=== PATIENT | male | born 1940 | race Caucasian/White ===

== ENCOUNTER 2020-05-08 05:30 | Inpatient (IN) | payer OTHER ==
[~2020-05-08 05:30] MED LIST: CRESTOR5 MG PO; TAMS0.4C PO; ZESTRIL10 M1 PO
== END 2020-05-13 12:38 | disposition home or self-care (01) | DRG 415 ==
LOC: CIR.AMB 05:30 → O/R 10:59 → SURH 10:59 → SURG 13:05 → SURH 15:31 → CIR.AMB 16:03 → SURH 05-13 12:38
PROVIDERS: ADMIT Specialist; ATTEND Specialist
PROC: 0FJ44ZZ Inspection of Gallbladder, Percutaneous Endoscopic Approach (ICD-10-PCS; 2020-05-08)
PROC: 0FT40ZZ Resection of Gallbladder, Open Approach (ICD-10-PCS; principal; 2020-05-08 08:30)
DX: K80.10 Calculus of gallbladder with chronic cholecystitis without obstruction (principal); K91.89 Other postprocedural complications and disorders of digestive system; K56.0 Paralytic ileus; K66.0 Peritoneal adhesions (postprocedural) (postinfection); Z53.31 Laparoscopic surgical procedure converted to open procedure; I12.9 Hypertensive chronic kidney disease with stage 1 through stage 4 chronic kidney disease, or unspecified chronic kidney disease; N18.9 Chronic kidney disease, unspecified; Y83.8 Other surgical procedures as the cause of abnormal reaction of the patient, or of later complication, without mention of misadventure at the time of the procedure

== ENCOUNTER → 2020-09-27 | Outpatient (CLI) | payer OTHER | END | disposition home or self-care (01) | LOC: PPH VACUNA | PROVIDERS: ATTEND Emergency Medicine Pediatric Emergency Medicine | DX: Z23 Encounter for immunization (principal) ==

== ENCOUNTER 2021-02-27 07:37 | Outpatient (CLI) | payer OTHER | END 2021-02-27 07:39 | disposition home or self-care (01) | LOC: NUCLEAR 07:37 | PROVIDERS: ATTEND Internal Medicine Cardiovascular Disease | DX: I25.10 Atherosclerotic heart disease of native coronary artery without angina pectoris (principal); R07.89 Other chest pain; R93.1 Abnormal findings on diagnostic imaging of heart and coronary circulation; Z82.49 Family history of ischemic heart disease and other diseases of the circulatory system | CPT/HCPCS: 78452; 93017; A9500; J0153 ==

== ENCOUNTER 2021-06-02 08:00 | Outpatient (CLI) | payer OTHER | END 2021-06-02 08:30 | disposition home or self-care (01) | LOC: PPH VACUNA 08:00 | PROVIDERS: ATTEND Emergency Medicine Pediatric Emergency Medicine | DX: Z23 Encounter for immunization (principal) ==

== ENCOUNTER 2021-12-28 09:00 | Outpatient (CLI) | payer OTHER | END 2021-12-28 09:15 | disposition home or self-care (01) | LOC: PPH VACUNA 09:00 | PROVIDERS: ATTEND Emergency Medicine Pediatric Emergency Medicine | DX: Z23 Encounter for immunization (principal) ==

== ENCOUNTER 2022-03-31 14:37 | Outpatient (CLI) | payer OTHER | END 2022-03-31 14:38 | disposition home or self-care (01) | LOC: NUCLEAR 14:37 | PROVIDERS: ATTEND Orthopaedic Surgery | DX: M81.0 Age-related osteoporosis without current pathological fracture (principal); Z88.0 Allergy status to penicillin ==

== ENCOUNTER 2022-04-01 13:46 | Outpatient (CLI) | payer OTHER | END 2022-04-01 14:00 | disposition home or self-care (01) | LOC: RAD 13:46 | PROVIDERS: ATTEND Orthopaedic Surgery | DX: M25.511 Pain in right shoulder (principal); M25.532 Pain in left wrist; M79.642 Pain in left hand ==

== ENCOUNTER 2022-06-17 15:34 | Outpatient (CLI) | payer OTHER | END 2022-06-17 15:39 | disposition home or self-care (01) | LOC: PPH VACUNA 15:34 | PROVIDERS: ATTEND Emergency Medicine Pediatric Emergency Medicine | DX: Z23 Encounter for immunization (principal) ==

== ENCOUNTER 2023-05-10 06:15 | Day surgery (SDC) | payer OTHER | END 2023-05-10 10:50 | disposition home or self-care (01) | LOC: CIR.AMB 06:15 | PROVIDERS: ATTEND Orthopaedic Surgery Hand Surgery | DX: G56.02 Carpal tunnel syndrome, left upper limb (principal); Z20.822 Contact with and (suspected) exposure to COVID-19 ==